=== PATIENT | male | born 1960 | race Caucasian/White ===

== ENCOUNTER 2025-02-18 08:28 | Outpatient (CLI) | payer BC | END 2025-02-18 08:29 | disposition home or self-care (01) | LOC: CSHSLEEP 08:28 → EDSTATUS 09:45 | PROVIDERS: ATTEND Family Medicine | DX: G47.33 Obstructive sleep apnea (adult) (pediatric) (principal); R53.83 Other fatigue; E66.9 Obesity, unspecified; Z68.39 Body mass index [BMI] 39.0-39.9, adult; G47.00 Insomnia, unspecified | CPT/HCPCS: 95800 ==